=== PATIENT | male | born 1980 | race Caucasian/White ===

== ENCOUNTER 2018-04-06 11:51 | Emergency (ER) | payer BC ==
[~2018-04-06] VITALS: Ht 182.9 cm; Wt 90.7 kg
[2018-04-06 11:53] VITALS: Ht 182.9 cm; Wt 90.7 kg
[2018-04-06 14:01] VITALS: BP 144/93
== END 2018-04-06 14:01 | disposition home or self-care (01) ==
LOC: ED 11:51
DX: S43.005A Unspecified dislocation of left shoulder joint, initial encounter (principal); W18.49XA Other slipping, tripping and stumbling without falling, initial encounter; Y93.64 Activity, baseball; Y92.89 Other specified places as the place of occurrence of the external cause; Y99.8 Other external cause status
CPT/HCPCS: G0500; J3490; Q0092